=== PATIENT | female | born 1980 | race Caucasian/White ===

== ENCOUNTER → 2017-07-24 | Outpatient (CLI) | payer OTHER ==
--- NOTE | 2017-07-24 07:56 | US ---
EXAMINATION TYPE: US abdomen complete DATE OF EXAM: 07/24/2017 COMPARISON: NONE CLINICAL HISTORY: B18.2 Chronic hep C. Chronic Hep C EXAM MEASUREMENTS: Liver Length: 12.6 cm Gallbladder Wall: 0.3 cm CBD: 0.4 cm Spleen: 12.4 cm Right Kidney: 9.2 x 3.3 x 4.9 cm Left Kidney: 10.1 x 4.1 x 5.3 cm Pancreas: wnl Liver: Heterogeneous, coarse echotexture, lobulated contour . This finding limits evaluation for und erlying hepatic masses. Gallbladder: wnl Evidence for sonographic Salazar's sign: No CBD: wnl Spleen: wnl Right Kidney: wnl, lobulated contour . Focal parenchymal defect is incidentally noted within the upp er pole. Left Kidney: wnl, lobulated contour Upper IVC: wnl Abd Aorta: wnl The liver is heterogenous and coarsened. The intrahepatic portion of the IVC and proximal abdominal a alexa are within normal limits. There is no evidence of cholelithiasis. Common bile duct is unremark able. The visualized portions of the pancreas are homogenous. The spleen is unremarkable. Kidneys are symmetric and free of hydronephrosis. No renal lesions are seen. IMPRESSION: 1. Coarsened and heterogenous hepatic echotexture compatible with the underlying known hepatocellular disease. No sonographic discrete masses on today's examination. 2. Prominent size of the spleen although this does not yet meet criteria for splenomegaly.
== END | disposition home or self-care (01) ==
LOC: RADUSWWP 07:25
PROVIDERS: ATTEND Family Medicine
DX: R93.2 Abnormal findings on diagnostic imaging of liver and biliary tract (principal); B18.2 Chronic viral hepatitis C
CPT/HCPCS: 76700

== ENCOUNTER → 2018-11-26 | Outpatient (CLI) | payer OTHER ==
--- NOTE | 2018-11-26 15:03 | US ---
EXAMINATION TYPE: US OB >= 14 wk fetus DATE OF EXAM: 11/26/2018 COMPARISON: None CLINICAL HISTORY: Z34.80 Normal encounter for pregnancyASSESS NORMAL TECHNIQUE: OBTA GESTATIONAL AGE / DATING Physician Established: Not yet established Dates by LMP: (17 weeks/0 days) EDC: 05/06/2019 Dates by First Scan: FLAKE[employer]ER Dates by Current Scan: (16 weeks/5 days) EDC: 05/08/2019 SURVEY IUP: Single PLACENTA: Posterior PREVIA: Low Lying JASMEET: 13.7 cm CERVICAL LENGTH (transabdominal: norm > 3.0cm): 3.9 cm, h/o 2 c-sections creates shadowing artifact n ear cervix BIOMETRY PRESENTATION: Variable BPD: 3.4 cm 16 weeks / 3 days HC: 12.6 cm 16 weeks / 3 days AC: 10.9 cm 16 weeks / 6 days FL: 2.3 cm 17 weeks / 0 days ESTIMATED WEIGHT IN GRAMS: 171 grams ESTIMATED WEIGHT IN LBS/OZ: 0 lbs. 6 oz. WEIGHT PERCENTAGE BASED ON ESTABLISHED DATES: 33% HC/AC: 1.1 Normal FL/AC: 21.1 Normal HEART RATE: 143 bpm RHYTHM: Normal MATERNAL WALL MEASUREMENT: 3.3 cm from skin to anterior uterine wall (if exam limited due to body hab itus). IMPRESSION: Single viable intrauterine corresponding to ultrasound age 16 weeks 5 days with estimated d ate of delivery 05/08/2019, limited survey
== END | disposition home or self-care (01) ==
LOC: RADUSWWP 13:00
PROVIDERS: ATTEND Obstetrics & Gynecology
DX: Z34.80 Encounter for supervision of other normal pregnancy, unspecified trimester (principal)
CPT/HCPCS: 76805

== ENCOUNTER → 2019-03-23 | Outpatient (CLI) | payer OTHER ==
--- NOTE | 2019-03-24 07:43 | US ---
EXAMINATION TYPE: US OB >= 14 wk fetus DATE OF EXAM: 03/23/2019 COMPARISON: Second trimester ultrasound November 26, 2018 CLINICAL HISTORY: Z34.90 SUPERVISION OF NORMAL TECHNIQUE: TA GESTATIONAL AGE / DATING Physician Established: (33 weeks/5 days) EDC: 05/06/2019 Dates by LMP: (33 weeks/5 days) EDC: 05/06/2019 Dates by First Scan: (33 weeks/3 days) EDC: 05/08/2019 Dates by Current Scan: (32 weeks/6 days) EDC: 05/12/2019 Beta HCG (if available): NA SURVEY IUP: Single PLACENTA: Fundal PREVIA: No Previa JASMEET: 17 cm Normal CERVICAL LENGTH (transabdominal: norm > 3.0cm): 3.4cm BIOMETRY PRESENTATION: Vertex LIE: Longitudinal BPD: 8.2 cm 33 weeks / 0 days HC: 29.7 cm 32 weeks / 6 days AC: 29.0 cm 33 weeks / 0 days FL: 6.3 cm 32 weeks / 5 days ESTIMATED WEIGHT IN GRAMS: 2083 grams ESTIMATED WEIGHT IN LBS/OZ: 4lbs. 9 oz. WEIGHT PERCENTAGE BASED ON ESTABLISHED DATES: 21.5 % HC/AC: 1.02 Normal FL/AC: 21.9 Normal HEART RATE: 133 bpm RHYTHM: Normal Single live intrauterine gestation is redemonstrated. No cervical thinning. Normal cephalad presentat ion. Amniotic fluid index calculated within normal limits. No placenta previa. biometry measure ments are congruent and felt within normal limits. IMPRESSION: As above.
== END | disposition home or self-care (01) ==
LOC: RADUSWWP 15:22
PROVIDERS: ATTEND Obstetrics & Gynecology
DX: Z34.93 Encounter for supervision of normal pregnancy, unspecified, third trimester (principal); Z3A.32 32 weeks gestation of pregnancy
CPT/HCPCS: 76805

== ENCOUNTER → 2019-04-21 | Outpatient (CLI) | payer OTHER ==
--- NOTE | 2019-04-21 15:33 | US ---
EXAMINATION TYPE: US OB >= 14 wk fetus DATE OF EXAM: 04/21/2019 COMPARISON: Prior third trimester ultrasound March 23, 2019. CLINICAL HISTORY: Z34.90 SUPERVISION OF NORMAL PREGNANCYGrowth scheduled c section on 04/29/2019 TECHNIQUE: Transabdominal (TA) GESTATIONAL AGE / DATING Physician Established: (37 weeks/6 days) EDC: 05/06/2019 Dates by LMP: (37 weeks/6 days) EDC: 05/06/2019 Dates by First Scan: (16 weeks/5 days) EDC: 05/08/2019 Dates by Current Scan: (37 weeks/6 days) EDC: 05/06/2019 SURVEY IUP: Single PLACENTA: Fundal PREVIA: No Previa JASMEET: 11.9 cm Normal CERVICAL LENGTH (transabdominal: norm > 3.0cm): Not well visualized due to shadowing. BIOMETRY PRESENTATION: Vertex BPD: 9.23 cm 37 weeks / 4 days HC: 33.43 cm 38 weeks / 2 days AC: 33.38 cm 37 weeks / 3 days FL: 7.42 cm 38 weeks / 0 days ESTIMATED WEIGHT IN GRAMS: 3250 grams ESTIMATED WEIGHT IN LBS/OZ: 7 lbs. 3 oz. WEIGHT PERCENTAGE BASED ON ESTABLISHED DATES: 54% HC/AC: 1.00 m Normal FL/AC: 22% Normal HEART RATE: 129 bpm RHYTHM: Normal Single live intrauterine gestation is redemonstrated. Normal cephalic presentation again seen. No sandra centa previa. Amniotic fluid index calculated within normal limits. biometry measurements congr uent and felt within normal limits with interval adequate growth noted. IMPRESSION: As above.
== END | disposition home or self-care (01) ==
LOC: RADUSWWP 14:27
PROVIDERS: ATTEND Obstetrics & Gynecology
DX: Z34.93 Encounter for supervision of normal pregnancy, unspecified, third trimester (principal)
CPT/HCPCS: 76805

== ENCOUNTER → 2021-03-25 | Outpatient (CLI) | payer OTHER ==
[2021-03-25 17:16] LABS: African American GFR (CKD) 80.5 (60.0-200.0); Albumin 4.6 g/dL (3.80-4.90); Albumin/Globulin Ratio 1.28 (1.60-3.17); Anion Gap 11.7 mmol/L (4.00-12.00); Calcium 9.5 mg/dL (8.7-10.3); Carbon Dioxide 22.3 mmol/L (21.6-31.8); Globulin 3.6 g/dL (1.6-3.3); Non-African American GFR(CKD) 69.4 (60.0-200.0); Potassium 4.6 mmol/L (3.5-5.5); Total Bilirubin 0.3 mg/dL (0.3-1.2); Total Protein 8.2 g/dL (6.2-8.2)
== END | disposition home or self-care (01) ==
LOC: LABWHC1 10:59
PROVIDERS: ATTEND General Practice
DX: F11.20 Opioid dependence, uncomplicated (principal)
CPT/HCPCS: 36415; 80053

== ENCOUNTER 2021-04-24 12:02 | Emergency (ER) | payer OTHER ==
[2021-04-24 12:07] VITALS: BP 146/86; PULSE 77; TEMP 97.4
[2021-04-24] MEDS ORDERED: LIDOCAINE 1% INJ 10MG/ML (20 ML MDV) SQ ONE (12:26)
--- NOTE | 2021-04-24 13:10 | ED ---
Skin/Abscess/FB HPI - General Chief complaint: Skin/Abscess/Foreign Body Stated complaint: Rt middle finger wound Time Seen by Provider: 04/24/21 12:22 Source: patient, RN notes reviewed Mode of arrival: ambulatory Limitations: no limitations - History of Present Illness Initial comments: Patient is a 41-year-old female that presents to emergency department with a right middle finger paronychia. She notes that it appeared over the course of a couple days. She notes it is extremely tender and painful. She notes that she has a history of getting some abscesses on her arms but none on her fingers. She was otherwise well-appearing in no apparent distress or pain. She denied any chest pain shortness breath headache nausea vomiting diarrhea constipation fever fatigue chills. - Related Data Home Medications Medication Instructions Recorded Confirmed Ibuprofen [Motrin] 800 mg PO TID PRN 11/22/15 06/03/19 Previous Rx's Medication Instructions Recorded Cephalexin [Keflex] 500 mg PO Q6HR #40 cap 04/24/21 Sulfamethox-Tmp 800-160Mg [Bactrim 1 each PO Q12HR #20 tab 04/24/21 Ds] Allergies Allergy/AdvReac Type Severity Reaction Status Date / Time No Known Allergies Allergy Verified 04/24/21 12:05 Review of Systems ROS Statement: Those systems with pertinent positive or pertinent negative responses have been documented in the HPI. ROS Other: All systems not noted in ROS Statement are negative. Past Medical History Past Medical History: Unable to Obtain Additional Past Medical History / Comment(s): HEP C History of Any Multi-Drug Resistant Organisms: MRSA Date of last positivie culture/infection: 2012 MDRO Source:: wrist Past Surgical History: Section Past Psychological History: No Psychological Hx Reported Smoking Status: Current every day smoker Past Alcohol Use History: None Reported Past Drug Use History: Heroin, Marijuana General Exam Limitations: no limitations General appearance: alert, in no apparent distress Head exam: Present: atraumatic, normocephalic, normal inspection Eye exam: Present: normal appearance, PERRL, EOMI. Absent: scleral icterus, conjunctival injection, periorbital swelling Neck exam: Present: normal inspection Respiratory exam: Present: normal lung sounds bilaterally. Absent: respiratory distress, wheezes, rales, rhonchi, stridor Cardiovascular Exam: Present: regular rate, normal rhythm, normal heart sounds. Absent: systolic murmur, diastolic murmur, rubs, gallop, clicks Extremities exam: Present: normal inspection, full ROM, normal capillary refill. Absent: tenderness, pedal edema, joint swelling, calf tenderness Neurological exam: Present: alert, oriented X3 Psychiatric exam: Present: normal affect, normal mood Skin exam: Present: warm, dry, intact, normal color. Absent: rash Expanded Type of lesion: Present: abscess (Right middle finger lateral nail fold paronychia.) Course Vital Signs 04/24/21 12:05 Temperature 97.4 F L Pulse Rate 77 Respiratory 16 Rate Blood Pressure 146/86 O2 Sat by Pulse 93 L Oximetry Procedures - Incision & Drainage Consent Obtained: verbal consent Site: hand (Right middle finger paronychia) Size (cm): 1 Anesthetic Used: lidocaine 1% (Digit block) Amount (mLs): 10 I&D Cleaning Method: Alcohol Wipe Sterile Field Used?: Yes Scalpel Used: #11 Needle Aspiration Performed?: No I&D Drainage Obtained: Pus, Blood Culture Obtained?: Yes Patient Tolerated Procedure: well, no complications Medical Decision Making - Medical Decision Making 41-year-old female with a right middle finger paronychia. Lidocaine, aerobic wound culture ordered. Patient tolerated incision and drainage well. His discussed with Dr. Tran, patient can discharge home with a box. Disposition Clinical Impression: Paronychia of right middle finger Disposition: HOME SELF-CARE Condition: Stable Instructions (If sedation given, give patient instructions): Abscess (ED) Additional Instructions: Please return to the Emergency Department if symptoms worsen or any other concerns. Follow-up with primary care 1-2 days. Take antibiotics as prescribed until complete. Prescriptions: Sulfamethox-Tmp 800-160Mg [Bactrim Ds] 1 each PO Q12HR #20 tab Cephalexin [Keflex] 500 mg PO Q6HR #40 cap Is patient prescribed a controlled substance at d/c from ED?: No Referrals: Amber Sahu MD [Primary Care Provider] - 1-2 days Time of Disposition: 13:10
[2021-04-24 13:19] VITALS: RESP 18
== END 2021-04-24 13:27 | disposition home or self-care (01) ==
LOC: EC 12:02
DX: L03.011 Cellulitis of right finger (principal); F17.200 Nicotine dependence, unspecified, uncomplicated; F12.90 Cannabis use, unspecified, uncomplicated; Z86.19 Personal history of other infectious and parasitic diseases
CPT/HCPCS: 99283; 10060; 87070; 87205; J2001